=== PATIENT | female | born 1940 | race Caucasian/White ===

== ENCOUNTER 2020-08-03 07:31 | Day surgery (SDC) | payer OTHER, BC ==
[2020-07-28 16:25] VITALS: BMI 23.3
[~2020-08-03 07:31] MED LIST: TROPICAMIDE 1% OPHTH SOLN 15 ML BOTTLE OS SCH
--- OUTSIDE RECORDS SUMMARY | 2020-08-03 07:34 | XMS ---
:1940 Author Organization [facility] Care Team Providers Name Role Phone Drew Nicole MD Unavailable Unavailable Re-disclosure Warning The records that you are about to access may contain information from federally- assisted alcohol or drug abuse programs. If such information is present, then the following federally mandated warning applies: This information has been disclosed to you from records protected by federal confidentiality rules (42 CFR part 2). The federal rules prohibit you from making any further disclosure of this information unless further disclosure is expressly permitted by the written consent of the person to whom it pertains or as otherwise permitted by 42 CFR part 2. A general authorization for the release of medical or other information is NOT sufficient for this purpose. The Federal rules restrict any use of the information to criminally investigate or prosecute any alcohol or drug abuse patient.The records that you are about to access may contain highly sensitive health information, the redisclosure of which is protected by Article 27-F of the [facility] Public Health law. If you continue you may haveaccess to information: Regarding HIV / AIDS; Provided by facilities licensed or operated by the [facility] Office of Mental Health; or Provided by the [facility] Office for People With Developmental Disabilities. If such information is present, then the following [facility] mandated warning applies: This information has been disclosed to you from confidential records which are protected by state law. State law prohibits you from making any further disclosure of this information without the specific written consent of the person to whom it pertains, or as otherwise permitted by law. Any unauthorized further disclosure in violation of state law may result in a fine or halfway sentence or both. A general authorization for the release of medical or other information is NOT sufficient authorization for further disclosure. Advance Directives Directive Description [facility] Status Observation Data Description Source(s ) Advance Yes completed [facility] Advance Y - Ana Braxton completed [facility] [place] directive () 914 Hospit al 441 1700 Allergies and Adverse Reactions Type Description Substance Reaction Status Data Source(s ) Drug allergy No Known Allergies No Known Allergies none [facility] Encounters Encounter Providers Location Date Indications Data Source(s ) Outpatient Attender: 10/02/2019 [facility] Drew [facility] 09:00:00 AM Hospit al EST - 10/02/2019 07:53:00 AM EST [facility] Patient discharged. Medications Medication Brand Start Product Dose Route Administrative Pharmacy [facility] Indications Reaction Description Data Name Date Form Instructions Instructions Source(s) Famotidine Famoti 03/28/ TABLET 20 mg ORAL complet [facility] 20 MG Oral dine 2015 [facility] [place] Tablet 11:29: Hospital 00 AM EDT Metoprolol Metopr 11/09/ TABLET 25 mg ORAL complet [facility] Tartrate 25 olol 2014 ed [place] MG Oral Tartra 03:25: Hospital Tablet te 00 PM EST Aspirin 81 Aspiri TABLET, 81 mg ORAL complet [facility] MG Delayed n CHEWABLE ed Plain s Release Hospital Oral Tablet [Aspir-Low] Amlodipine Amlodi CAPSULE 1 ORAL complet W gonz[place] 5 MG / pine {Each ed [place] Benazepril Besyla } Hospita l hydrochlori te/Pito de 20 MG azepri Oral l Capsule Amlodipine Besylate/Be nazepril Levothyroxi Levoth TABLET 75 ug ORAL complet [facility] ne Sodium yroxin ed [place] 0.075 MG e Hospital Oral Tablet Sodium [Synthroid] Cholecalcif Cholec CAPSULE 1000 ORAL complet [facility] [place]el 1000 alcife ed [place] UNT Oral rol Hospital Capsule Aspirin 81 Aspiri ENTERIC 81 mg ORAL complet [facility] MG Delayed n COATED ed [place] Release TABLET Hospital Oral Tablet Insurance Providers Payer name Policy type Policy ID Covered Covered constitution party's Policy P esdras / Coverage constitution party ID relationship to Lizama Inf ormation type lizama BLUE CROSS [id number] SP [id number] SUPP PLAN 8 MEDICARE [id number] SP [id number] 31 1 BLUE CROSS [id number] PT [id number] OTHER 8 MEDICARE [id number] PT [id number] 31 1 Problems, Conditions, and Diagnoses Code Display Name Description Problem Type Effective Dates Data Source(s) Z87.891 Personal history of Z87.891 Diagnosis 10/02/2019 [place] nicotine dependence 07:52:00 AM EST Hospital Z92.3 Personal history of Z92.3 Diagnosis 10/02/2019 [place] irradiation 07:52:00 AM EST Hospital 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 and 07:52:00 AM EST Hos pital nipple 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 07:52:00 AM [facility] Hospital Z85.3 Personal history of Z85.3 Diagnosis 10/02/2019 [place] malignant neoplasm of 07:52:00 AM [facility] breast Z79.82 half-way (current) Z79.82 Diagnosis 10/02/2019 [place] use of aspirin 07:52:00 AM EST Hospi tami E03.9 Hypothyroidism, E03.9 Diagnosis 10/02/2019 [place] [facility] unspecified 07:52:00 AM EST Hospital I10 Essential (primary) I10 Diagnosis 10/02/2019 [place] hypertension 07:52:00 AM EST Hospita l I27.20 Pulmonary I27.20 Diagnosis 10/02/2019 [place] hypertension, 07:52:00 AM EST Hospit al unspecified 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 10/02/2019 [place] (valve) stenosis 07:52:00 AM EST Hos pital 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 Procedure Social History Code Duration Value Status Description Data Source(s ) Smoking Unknown if ever completed Unknown if ever [facility] smoked smoked Hospital Vital Signs ID Date Data Source UNK Name Value Range Interpretation Code Description Data Source(s) Systolic blood 133 mm[Hg] 133 mm[Hg] [facility] Diastolic blood 63 mm[Hg] 63 mm[Hg] [facility] pressure [facility] Respiratory rate 13 /min 13 /min [facility] Heart rate 92 /min 92 /min [facility] Body temperature 36.44746 36.92223 [facility] Body temperature 98.4 [degF] 98.4 [degF] [facility] Body mass index 26.0 kg/m2 26.0 kg/m2 [facility] (BMI) [Ratio] Hospital Body weight 142.31 142.31 [lb_av] [facility] [lb_av] Hospital
[2020-08-03] MEDS ORDERED: OFLOXACIN 0.3% OPHTHALMIC SOLUTION 5 ML BOTTLE ONE (07:40)
[2020-08-03] MEDS ORDERED: PHENYLEPHRINE 2.5% OPHTH SOLN 15 ML BOTTLE ONE (07:40)
[2020-08-03] MEDS ORDERED: KETOROLAC TROMETHAMINE 0.5% EYE DROP 1 DROP DROPS ONE (07:40)
[2020-08-03] MEDS ORDERED: CYCLOPENTOLATE HCL 1% OPHTH SOLN 2 ML BOTTLE ONE (07:40)
[2020-08-03] MEDS: CYCLOPENTOLATE HCL 1% OPHTH SOLN 2 ML BOTTLE OS SCH ×5 (08:05→08:25)
[2020-08-03] MEDS: KETOROLAC TROMETHAMINE 0.5% EYE DROP 1 DROP DROPS OS SCH ×5 (08:05→08:25)
[2020-08-03] MEDS: PHENYLEPHRINE 2.5% OPHTH SOLN 15 ML BOTTLE OS SCH ×5 (08:05→08:25)
[2020-08-03] MEDS: OFLOXACIN 0.3% OPHTHALMIC SOLUTION 5 ML BOTTLE OS SCH ×5 (08:05→08:25)
[2020-08-03] MEDS: TROPICAMIDE 1% OPHTH SOLN 15 ML BOTTLE ONE ×5 (08:05→08:25)
[2020-08-03] MEDS ORDERED: MIDAZOLAM HCL 2 MG/2 ML SINGLE DOSE VIAL ONE (08:36)
[2020-08-03] MEDS ORDERED: ACETAMINOPHEN 325 MG TABLET (FP) PO PRN (10:17)
[2020-08-03] MEDS ORDERED: DEXAMETHASONE SOD PHOSPHATE 4 MG/1 ML VIAL ONE (10:26)
[2020-08-03] MEDS ORDERED: PROMETHAZINE HCL 25 MG/1 ML VIAL IVPUSH PRN (11:11)
[2020-08-03] MEDS ORDERED: DEXAMETHASONE SOD PHOSPHATE 4 MG/1 ML VIAL IVPUSH ONE (11:11)
[2020-08-03] MEDS ORDERED: ONDANSETRON 4 MG/2 ML VIAL IVPUSH PRN (11:11)
--- NOTE | 2020-08-03 11:12 | OP ---
DATE OF OPERATION: 08/03/2020 PREOPERATIVE DIAGNOSIS: Cataract, left eye. POSTOPERATIVE DIAGNOSIS: Cataract, left eye. PROCEDURE: Cataract extraction via phacoemulsification with insertion of posterior chamber lens implant, left eye. SURGEON: Chivo Ovalle MD OUTBOUND SALES EXECUTIVE: Bere Flowers MD ANESTHESIA: Topical with sedation. ESTIMATED BLOOD LOSS: Less than 1 mL. COMPLICATIONS: None. SPECIMENS: None. DESCRIPTION OF PROCEDURE: The patient was identified in the holding area. After all risks, benefits, and alternatives were explained to the patient, informed consent was obtained. The left eye was marked with a marking pen. The patient then entered the operating room on an eye stretcher. After a formal timeout was performed, topical tetracaine eye drops were instilled onto the left eye. The left eye was then prepped and draped in the usual sterile fashion. An eyelid speculum was placed beneath the eyelids of the left eye. An inferotemporal paracentesis incision was created using a 15-degree blade. Topical preservative-free epinephrine and preservative-free lidocaine were then injected into the anterior chamber. Viscoelastic was then injected into the anterior chamber. A 2.4-mm keratome blade was then used to make a superotemporal incision. A 360-degree continuous curvilinear capsulorrhexis was then created us bent cystotome and Utrata forceps. Hydrodissection was performed using balanced saline solution on a cannula. Phacoemulsification was introduced to disassemble and remove the nucleus in its entirety. Irrigation/aspiration was then used to remove any remaining cortical material from the eye. The capsular bag was re-formed using viscoelastic. An Mandeep model [id number] with a power of 25.0 diopters, serial number [id number] was inspected, found to be defect free, and injected in the capsular bag. Irrigation/aspiration was then used to remove any remaining viscoelastic from the eye. All wounds were hydrated with balanced saline solution, noted to be watertight. There was red reflex present. The anterior chamber was deep. The lens was perfectly centered in the capsular bag, and the eye had adequate pressure. Topical antibiotic eye drops and ointment were then administered to the left eye. The eyelid speculum was removed from the left eye. Left eye was shielded. Patient tolerated the procedure well, left the operating room in stable condition, to follow up in the eye clinic tomorrow morning at 10:00. CHIVO OVALLE M.D. ANDRES/[id number]
[2020-08-03] MEDS ORDERED: LACTATED RINGERS SOLUTION 1,000 ML IV SCH (11:15)
[2020-08-03 11:24] VITALS: TEMP 98.1
[2020-08-03] MEDS ORDERED: EPI-SHUGARCAINE (EPINEPHRINE 0.025% & LIDOCAINE-PF 0.75%) 4ML ONE (13:14)
[2020-08-03] MEDS ORDERED: POVIDONE-IODINE 5% OPHTHALMIC PREP 30 ML SOLUTION ONE (13:14)
[2020-08-03] MEDS ORDERED: NEO/POLYMYX B SULF/DEXAMETH OPHTHALMIC 5ML BOTTLE ONE (13:14)
[2020-08-03] MEDS ORDERED: TETRACAINE 0.5% OPHTH SOLN 2 ML BOTTLE ONE (13:14)
[2020-08-03] MEDS ORDERED: EPINEPHrine/PF 1 MG/1 ML (1:1,000) AMPULE ONE (13:14)
[2020-08-03] MEDS ORDERED: BACITRACIN/POLYMYXIN OPH OINT 3.5 GM TUBE ONE (13:14)
[2020-08-03] MEDS ORDERED: BETAXOLOL HCL 0.25% OPHTHALMIC 10 ML DROPSBTL ONE (13:14)
[2020-08-03 13:29] VITALS: BP 131/64; PULSE 78
== END 2020-08-03 12:45 | disposition home or self-care (01) ==
LOC: FASU 07:31
PROVIDERS: ATTEND Ophthalmology
PROC: 08RK3JZ Replacement of Left Lens with Synthetic Substitute, Percutaneous Approach (ICD-10-PCS; principal; 2020-08-03 09:50)
DX: H26.9 Unspecified cataract (principal)

== ENCOUNTER 2020-08-17 06:23 | Day surgery (SDC) | payer OTHER, BC ==
[2020-08-11 16:49] VITALS: BMI 23.3
--- OUTSIDE RECORDS SUMMARY | 2020-08-17 06:26 | XMS ---
:1940 Author Organization [facility] Care Team Providers Name Role Phone Drew [...] is protected by Article 27-F of the [facility] Public Health law. If you continue you may haveaccess to information: Regarding HIV / AIDS; Provided by facilities licensed or operated by the [facility] Office of Mental Health; or Provided by the [facility] Office for People With Developmental Disabilities. If such information is present, then the following [facility] mandated warning applies: This information has [...] law may result in a fine or shelter sentence or both. A general authorization for the release of medical or other information is NOT sufficient authorization for further disclosure. Allergies and Adverse Reactions Type Description Substance Reaction Status Data Source(s ) Drug allergy No Known Allergies No Known Allergies none [facility] Encounters Encounter Providers Location Date Indications Data Source(s ) Outpatient Attender: 10/02/2019 [facility] Drew Bliagos 09:00:00 AM Hospit marla DYER EST - 10/02/2019 07:53:00 AM EST [facility] Patient discharged. Medications Medication Brand Start Product Dose Route Administrative Pharmacy [facility] Indications Reaction Description Data Name Date Form Instructions Instructions Source(s) Aspirin 81 Aspiri TABLET, 81 mg ORAL complet [facility] Delayed n CHEWABLE ed Plain s Release Hospital Oral Tablet [Aspir-Low] Insurance Providers Payer name Policy type Policy ID Covered Covered republican's Policy P esdras / Coverage republican ID relationship to Lizama Inf ormation type lizama MEDICARE [id number] SP [id number] 31 1 BLUE CROSS [id number] SP [id number] SUPP PLAN 8 MEDICARE [id number] SP [id number] 31 1 BLUE CROSS [id number] PT [id number] OTHER 8 MEDICARE [id number] PT [id number] 31 1 Problems, Conditions, and Diagnoses Code Display Name Description Problem Type Effective Dates Data Source(s) Z87.891 Personal history of Z87.891 Diagnosis 10/02/2019 [place] nicotine dependence 07:52:00 AM EST Hospital Z92.3 Personal history of Z92.3 Diagnosis 10/02/2019 [place] irradiation 07:52:00 AM EST Hospital 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 10/02/2019 [place] right breast and 07:52:00 AM EST Hos pital nipple 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 Personal history of 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 07:52:00 AM [facility] Hospital Z85.3 Personal history of Z85.3 Diagnosis 10/02/2019 [place] malignant neoplasm of 07:52:00 AM T Hospital breast 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) Z79.82 Diagnosis 10/02/2019 [place] use of aspirin 07:52:00 AM EST Hospi tami E03.9 Hypothyroidism, E03.9 Diagnosis 10/02/2019 [place] [facility] unspecified 07:52:00 AM EST Hospital I10 Essential (primary) I10 Diagnosis 10/02/2019 [place] hypertension 07:52:00 AM EST Hospita l I27.20 Pulmonary I27.20 Diagnosis 10/02/2019 [place] hypertension, 07:52:00 AM EST Hospit al unspecified 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 10/02/2019 [place] (valve) stenosis 07:52:00 AM EST Hos pital 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 ID Date Data Source [id number] 07/30/2020 12:03:00 PM EDT [facility] Name Value Range Interpretation Description Data Sup porting Code Source(s) Document(s ) SARS [facility] coronavirus 2 RNA This lab was ordered by [facility] solorio [facility] and reported by [facility]. Procedure Vital Signs ID Date Data Source UNK Name Value Range Interpretation Code Description Data Source(s) Systolic blood 133 mm[Hg] 133 mm[facility] Diastolic blood 63 mm[Hg] 63 mm[Hg] [facility] pressure Hospital Respiratory rate 13 /min 13 /min [facility] Heart rate 92 /min 92 /min [facility] Body temperature 36.06584 36.64950 Gab[facility] Body temperature 98.4 [degF] 98.4 [degF] [facility] Body mass index 26.0 kg/m2 26.0 kg/m2 [facility] ins (BMI) [Ratio] Hospital Body weight 142.31 142.31 [lb_av] [facility] [lb_av] Hospital
[2020-08-17] MEDS ORDERED: KETOROLAC TROMETHAMINE 0.5% EYE DROP 1 DROP DROPS ONE (06:43)
[2020-08-17] MEDS ORDERED: OFLOXACIN 0.3% OPHTHALMIC SOLUTION 5 ML BOTTLE ONE (06:43)
[2020-08-17] MEDS ORDERED: TROPICAMIDE 1% OPHTH SOLN 15 ML BOTTLE ONE (06:43)
[2020-08-17] MEDS ORDERED: PHENYLEPHRINE 2.5% OPHTH SOLN 15 ML BOTTLE ONE (06:43)
[2020-08-17] MEDS ORDERED: CYCLOPENTOLATE HCL 1% OPHTH SOLN 2 ML BOTTLE ONE (06:43)
[2020-08-17] MEDS ORDERED: TETRACAINE 0.5% OPHTH SOLN 2 ML BOTTLE ONE (07:05)
[2020-08-17] MEDS ORDERED: BETAXOLOL HCL 0.25% OPHTHALMIC 10 ML DROPSBTL ONE (07:05)
[2020-08-17] MEDS ORDERED: BACITRACIN/POLYMYXIN OPH OINT 3.5 GM TUBE ONE (07:05)
[2020-08-17] MEDS ORDERED: EPI-SHUGARCAINE (EPINEPHRINE 0.025% & LIDOCAINE-PF 0.75%) 4ML ONE (07:05)
[2020-08-17] MEDS ORDERED: POVIDONE-IODINE 5% OPHTHALMIC PREP 30 ML SOLUTION ONE (07:06)
[2020-08-17] MEDS ORDERED: NEO/POLYMYX B SULF/DEXAMETH OPHTHALMIC 5ML BOTTLE ONE (07:06)
[2020-08-17] MEDS ORDERED: EPINEPHrine/PF 1 MG/1 ML (1:1,000) AMPULE ONE (07:14)
[2020-08-17] MEDS ORDERED: TROPICAMIDE 1% OPHTH SOLN 15 ML BOTTLE OD SCH (07:30)
[2020-08-17] MEDS ORDERED: KETOROLAC TROMETHAMINE 0.5% EYE DROP 1 DROP DROPS OD SCH (07:30)
[2020-08-17] MEDS ORDERED: OFLOXACIN 0.3% OPHTHALMIC SOLUTION 5 ML BOTTLE OD SCH (07:30)
[2020-08-17] MEDS ORDERED: PHENYLEPHRINE 2.5% OPHTH SOLN 15 ML BOTTLE OD SCH (07:30)
[2020-08-17] MEDS ORDERED: CYCLOPENTOLATE HCL 1% OPHTH SOLN 2 ML BOTTLE OD SCH (07:30)
[2020-08-17] MEDS ORDERED: ACETAMINOPHEN 325 MG TABLET (FP) PO PRN (09:03)
--- NOTE | 2020-08-17 09:29 | OP ---
DATE OF OPERATION: 08/17/2020 PREOPERATIVE DIAGNOSIS: Cataract, right eye. POSTOPERATIVE DIAGNOSIS: Cataract, right eye. PROCEDURE: Cataract extraction via phacoemulsification with insertion of posterior chamber lens implant, right eye. SURGEON: Chivo Navarrete MD TENSION MACHINE OPERATOR: Bere Flowers MD ANESTHESIA: Topical anesthesia. ESTIMATED BLOOD LOSS: Less than 1 mL. COMPLICATIONS: None. SPECIMENS: None. PROCEDURE: The patient was identified in the holding area. After all risks, benefits and alternatives were explained to the patient, informed consent was obtained. The right eye was marked with a marking pen. The patient then entered the operating room on an eye stretcher. After formal timeout was performed, topical tetracaine eye drops were instilled onto the right eye. The right eye was then prepped and draped in the usual sterile fashion. An eyelid speculum was placed beneath the eyelids of the right eye. A superotemporal paracentesis incision was created using a 15-degree blade. Topical preservative-free epinephrine and preservative-free lidocaine were then injected into the anterior chamber. Viscoelastic was then injected into the anterior chamber. A 2.4-mm keratome blade was then used to make an inferotemporal incision. A 360-degree continuous curvilinear capsulorrhexis was then created using bent cystotome and Utrata forceps. Hydrodissection was performed using balanced saline solution on a cannula. Phacoemulsification was introduced. It disassembled and removed the nucleus in its entirety. Irrigation/aspiration was then used to remove any remaining cortical material from the eye. The capsular bag was reformed using viscoelastic. An Mandeep model [id number] with a power of 24.0 diopters, serial number [id number] was inspected, found to be defect free and injected in the capsular bag. Irrigation/aspiration was then used to remove any remaining viscoelastic from the eye. All wounds were hydrated with balanced saline solution, noted to be watertight. There was a red reflex present. The anterior chamber was deep. The lens was perfectly centered in the capsular bag and the eye had adequate pressure. Topical antibiotic eye drops and ointment were then administered to the right eye. The eyelid speculum was removed from the right eye. The right eye was shielded. Patient tolerated the procedure well, left the operating room in stable condition, to follow up in the eye clinic tomorrow morning at 10 o'clock. Janet JHA/[id number]
[2020-08-17 09:53] VITALS: TEMP 97.8
[2020-08-17 09:56] VITALS: BP 128/71; PULSE 70
== END 2020-08-17 09:40 | disposition home or self-care (01) ==
LOC: FASU 06:23
PROVIDERS: ATTEND Ophthalmology
PROC: 08RJ3JZ Replacement of Right Lens with Synthetic Substitute, Percutaneous Approach (ICD-10-PCS; principal; 2020-08-17 08:39)
DX: H26.9 Unspecified cataract (principal)